=== PATIENT | female | born 1970 | race Caucasian/White ===

== ENCOUNTER → 2019-04-28 | Outpatient (CLI) | payer OTHER ==
[2019-04-28 09:04] LABS: Basophils # (A) 0.1 k/uL (0-0.2); Basophils % (A) 1 %; Eosinophils # (A) 0.3 k/uL (0-0.7); Eosinophils % (A) 3 %; HCT 42.6 % (34.0-46.0); HGB 13.8 gm/dL (11.4-16.0); Lymphocytes # (A) 1.7 k/uL (1.0-4.8); Lymphocytes % (A) 21 %; MCHC 32.5 g/dL (31.0-37.0); MCV 95.3 fL (80.0-100.0); Mean Platelet Volume 8.1; Monocytes # (A) 0.5 k/uL (0-1.0); Monocytes % (A) 6 %; Neutrophils # (A) 5.4 k/uL (1.3-7.7); Neutrophils % (A) 67 %; Platelet Count 265 k/uL (150-450); RBC 4.47 m/uL (3.80-5.40); RDW 14.1 % (11.5-15.5); WBC 8.1 k/uL (3.8-10.6)
[2019-04-28 17:14] LABS: African American GFR (CKD) 68.3 (60.0-200.0); Albumin 4.5 g/dL (3.80-4.90); Albumin/Globulin Ratio 2.5 (1.60-3.17); Anion Gap 5.7 mmol/L (4.00-12.00); BUN/Creat Ratio 18.18 Ratio (12.00-20.00); Calcium 9.5 mg/dL (8.7-10.3); Carbon Dioxide 25.3 mmol/L (21.6-31.8); Globulin 1.8 g/dL (1.6-3.3); LDL Cholesterol,Calculated 116.8 mg/dL (0.0-131.0); Potassium 4.4 mmol/L (3.5-5.5); Total Bilirubin 0.4 mg/dL (0.2-1.2); Total Protein 6.3 g/dL (6.2-8.2); VLDL Calculation 15.2 mg/dL (5.00-40.00)
== END | disposition home or self-care (01) ==
LOC: LABWHC1 08:27
PROVIDERS: ATTEND Family Medicine
DX: E03.9 Hypothyroidism, unspecified (principal); R79.9 Abnormal finding of blood chemistry, unspecified
CPT/HCPCS: 36415; 80053; 80061; 82550; 84443; 85025

== ENCOUNTER → 2019-09-28 | Outpatient (CLI) | payer OTHER ==
--- NOTE | 2019-09-29 14:55 | MM ---
Reason for exam: screening (asymptomatic). Last mammogram was performed 9 years and 1 month ago. History: Patient is postmenopausal. Family history of breast cancer in maternal aunt. Physical Findings: A clinical breast exam by your physician is recommended on an annual basis and results should be correlated with mammographic findings. MG Screening Mammo w CAD Bilateral CC and MLO view(s) were taken. Prior study comparison: November 19, 2017, mammogram. December 08, 2016, mammogram. The breast tissue is heterogeneously dense. This may lower the sensitivity of mammography. New partially obscured nodule upper outer left breast 9.5cm from nipple. ASSESSMENT: Incomplete: need additional imaging evaluation, BI-RAD 0 RECOMMENDATION: Special view mammogram of the left breast. If lesion persists on supplemental views, image directed ultrasound is recommended. [facility] will attempt to contact patient to return for supplemental views and ultrasound if indicated.
== END | disposition home or self-care (01) ==
LOC: RADMAMWWP 16:19
PROVIDERS: ATTEND Family Medicine
DX: Z12.31 Encounter for screening mammogram for malignant neoplasm of breast (principal); Z80.3 Family history of malignant neoplasm of breast
CPT/HCPCS: 77067

== ENCOUNTER → 2019-10-20 | Outpatient (CLI) | payer OTHER ==
--- NOTE | 2019-10-20 14:33 | MM ---
Reason for exam: additional evaluation requested from abnormal screening. Last mammogram was performed 1 month ago. History: Patient is postmenopausal. Family history of breast cancer in maternal aunt. Physical Findings: Nurse did not find any significant physical abnormalities on exam. MG Work Up Mamm w CAD LT Spot compression CC, spot compression MLO, and ML view(s) were taken of the left breast. Prior study comparison: September 28, 2019, bilateral MG screening mammo w CAD. November 19, 2017, mammogram. The breast tissue is heterogeneously dense. This may lower the sensitivity of mammography. The previously seen abnormality resolves on additional views and appears as fibroglandular tissue compatible with summation. These results were verbally communicated with the patient and result sheet given to the patient on 10/20/19. ASSESSMENT: Negative, BI-RAD 1 RECOMMENDATION: Return to routine screening mammogram schedule for both breasts.
== END | disposition home or self-care (01) ==
LOC: RADMAMWWP 13:33
PROVIDERS: ATTEND Family Medicine
DX: R92.8 Other abnormal and inconclusive findings on diagnostic imaging of breast (principal)
CPT/HCPCS: 77065

== ENCOUNTER 2020-02-26 19:31 | Emergency (ER) | payer OTHER ==
[2020-02-26 19:41] VITALS: BP 124/79; PULSE 79; TEMP 99
[2020-02-26] MEDS ORDERED: methylPREDNISolone SOD SUCCI 125 MG/2 ML VIAL IM ONE (20:11)
--- NOTE | 2020-02-26 20:17 | ED ---
General Adult HPI - General Chief complaint: Skin/Abscess/Foreign Body Stated complaint: Bug Bites, allergic reaction Time Seen by Provider: 02/26/20 20:04 Source: patient, RN notes reviewed Mode of arrival: ambulatory Limitations: no limitations - History of Present Illness Initial comments: Patient is a pleasant 50-year-old female presenting to the emergency department with concern for reaction to mosquito bites. Patient received mosquito bites yesterday around this time. Patient complains of discomfort and swelling mostly of the left neck and face however somewhat left arm as well. Patient has approximately 7 or 8 areas. Patient does have problems similar to this previously and needed steroids. Patient talked to her doctor who advised she come to the emergency room for steroid shot and prescription. No dyspnea. No throat swelling. - Related Data Previous Rx's Medication Instructions Recorded predniSONE [Deltasone] 20 mg PO BID #10 tab 02/26/20 Allergies Allergy/AdvReac Type Severity Reaction Status Date / Time No Known Allergies Allergy Verified 02/26/20 19:40 Review of Systems ROS Statement: Those systems with pertinent positive or pertinent negative responses have been documented in the HPI. ROS Other: All systems not noted in ROS Statement are negative. Constitutional: Denies: fever Eyes: Denies: eye pain ENT: Denies: ear pain Respiratory: Denies: cough, dyspnea Cardiovascular: Denies: chest pain Endocrine: Denies: fatigue Gastrointestinal: Denies: abdominal pain Genitourinary: Denies: dysuria Musculoskeletal: Denies: back pain Skin: Reports: as per HPI, rash Neurological: Denies: weakness Past Medical History Past Medical History: Thyroid Disorder History of Any Multi-Drug Resistant Organisms: None Reported Past Surgical History: Cholecystectomy, Hysterectomy, Orthopedic Surgery, Tonsillectomy Past Psychological History: No Psychological Hx Reported Smoking Status: Current every day smoker Past Alcohol Use History: Occasional Past Drug Use History: None Reported General Exam Limitations: no limitations General appearance: alert, in no apparent distress Head exam: Present: normocephalic Eye exam: Present: normal appearance ENT exam: Present: normal oropharynx, other (No signs of angioedema of the lips or tongue or pharynx.) Neck exam: Present: normal inspection Respiratory exam: Present: normal lung sounds bilaterally Cardiovascular Exam: Present: regular rate, normal rhythm Extremities exam: Present: normal inspection Neurological exam: Present: alert Psychiatric exam: Present: normal affect, normal mood Skin exam: Present: other (Patient has several lesions consistent with bug bite with localized inflammation anywhere from a couple of millimeters to a couple of centimeters. No significant erythema or warmth. Areas affected includes mostly left neck however there is one left-sided face. One on the back into in the left arm.) Course Vital Signs 02/26/20 19:36 Temperature 99 F Pulse Rate 79 Respiratory 20 Rate Blood Pressure 124/79 O2 Sat by Pulse 97 Oximetry Disposition Clinical Impression: Insect bite, Reaction to insect bite Disposition: HOME SELF-CARE Condition: Stable Instructions (If sedation given, give patient instructions): Antihistamine (By mouth), Insect Bite or Sting (ED) Additional Instructions: Please follow-up with primary care physician in the next couple days for recheck. Return for any difficulty breathing, swelling of the throat, tongue, or lips, redness, fevers, worsening symptoms, worsening swelling or other concerns. Continue Benadryl Prescription sent to [facility], pharmacy on Prescriptions: predniSONE [Deltasone] 20 mg PO BID #10 tab Is patient prescribed a controlled substance at d/c from ED?: No Referrals: Li Salmeron MD [Primary Care Provider] - 1-2 days Time of Disposition: 20:16
[2020-02-26 20:23] VITALS: RESP 18
== END 2020-02-26 20:22 | disposition home or self-care (01) ==
LOC: EC 19:31
DX: S10.96XA Insect bite of unspecified part of neck, initial encounter (principal); S00.86XA Insect bite (nonvenomous) of other part of head, initial encounter; S40.862A Insect bite (nonvenomous) of left upper arm, initial encounter; F17.200 Nicotine dependence, unspecified, uncomplicated; W57.XXXA Bitten or stung by nonvenomous insect and other nonvenomous arthropods, initial encounter
CPT/HCPCS: 99283; 96372; J2930

== ENCOUNTER → 2020-08-02 | Outpatient (CLI) | payer OTHER ==
--- NOTE | 2020-08-02 11:17 | US ---
EXAMINATION TYPE: US thyroid st tissue head/neck DATE OF EXAM: 08/02/2020 COMPARISON: NONE CLINICAL HISTORY: F45.8 lump in throat. GLAND SIZE: Right Lobe: 3.1 x 1.5 x 1.0 cm Overall Parenchyma: grossly heterogenous Left Lobe: 3.3 x 1.6 x 1.2 cm Overall Parenchyma: grossly heterogeneous Isthmus Thickness: 0.2 cm NODULES RIGHT: # of nodules measured on right: 0 LEFT: # of nodules measured on left: 0 ISTHMUS: # of nodules measured in the isthmus: 0 Bilateral neck scanned, no evidence of lymphadenopathy. Markedly heterogeneous small sized thyroid without discrete nodules. IMPRESSION: As above. No enlarged thyroid or suspicious mass or nodule to account for patient's sympt oms of lump in throat.
== END | disposition home or self-care (01) ==
LOC: RADUSWWP 09:33
PROVIDERS: ATTEND Physician Assistant
DX: F45.8 Other somatoform disorders (principal)
CPT/HCPCS: 76536

== ENCOUNTER 2021-01-03 13:32 | Emergency (ER) | payer OTHER ==
[2021-01-03 13:58] VITALS: RESP 16; TEMP 98.6
[2021-01-03 15:24] LABS: Basophils # (A) 0.1 k/uL (0-0.2); Basophils % (A) 1 %; Eosinophils # (A) 0.1 k/uL (0-0.7); Eosinophils % (A) 1 %; HCT 42.8 % (34.0-46.0); HGB 15.1 gm/dL (11.4-16.0); Lymphocytes % (A) 21 %; MCH 31.7 pg (25.0-35.0); MCHC 35.2 g/dL (31.0-37.0); MCV 90.1 fL (80.0-100.0); Mean Platelet Volume 8.5; Monocytes # (A) 0.5 k/uL (0-1.0); Monocytes % (A) 5 %; Neutrophils # (A) 6.5 k/uL (1.3-7.7); Neutrophils % (A) 70 %; Platelet Count 253 k/uL (150-450); RBC 4.76 m/uL (3.80-5.40); RDW 12.1 % (11.5-15.5); WBC 9.4 k/uL (3.8-10.6)
[2021-01-03 15:35] LABS: Partial Thromboplastin Time 23.6 sec (22.0-30.0); Prothrombin Time 10.3 sec (9.0-12.0)
[2021-01-03 15:36] LABS: ALT 16 U/L (4-34); AST 25 U/L (14-36); African American GFR (CKD) >90 (>60 ml/min/1.73 sqM); Alkaline Phosphatase 101 U/L (38-126); Anion Gap 9 mmol/L; Blood Urea Nitrogen 16 mg/dL (7-17); Calcium 9.9 mg/dL (8.4-10.2); Carbon Dioxide 25 mmol/L (22-30); Chloride 105 mmol/L (98-107); Glucose 93 mg/dL (74-99); Magnesium 2.1 mg/dL (1.6-2.3); Non-African American GFR(CKD) 80 (>60 ml/min/1.73 sqM); Potassium 4.4 mmol/L (3.5-5.1); Sodium 139 mmol/L (137-145); Total Bilirubin 0.4 mg/dL (0.2-1.3); Total Protein 7.9 g/dL (6.3-8.2)
--- NOTE | 2021-01-03 15:42 | XR ---
EXAMINATION TYPE: XR chest 2V DATE OF EXAM: 01/03/2021 COMPARISON: None HISTORY: Chest pain TECHNIQUE: Frontal and lateral views of the chest are obtained. FINDINGS: There is no focal air space opacity, pleural effusion, or pneumothorax seen. The cardiac silhouette size is within normal limits. Surgical clips are present in the upper abdomen. The osseou s structures are intact. IMPRESSION: No acute cardiopulmonary process.
[2021-01-03 19:18] VITALS: BP 122/92; PULSE 65
--- NOTE | 2021-01-03 19:41 | ED ---
General Adult HPI - General Chief complaint: Chest Pain Stated complaint: Chest Pain Time Seen by Provider: 01/03/21 18:43 Source: patient Mode of arrival: wheelchair Limitations: no limitations - History of Present Illness Initial comments: Patient is a 50-year-old female that presents to emergency department complaining of chest pain. She notes that she does have a history of severe anxiety and stress at home. She wanted to come emergency room to get evaluated she does have family history of reactive rest and cardiac issues. She was seen while sitting in bed in no apparent distress or pain. She said that the chest pain and gone away. She noted that over the last several days the pain seemed to be constant. She denied any shortness of breath headache nausea vomiting diarrhea constipation fever fatigue chills lightheadedness dizziness weakness numbness tingling. - Related Data Home Medications Medication Instructions Recorded Confirmed Azelastine HCl [Astepro] 1 spr EA NOSTRIL BID PRN 01/03/21 01/03/21 Cetirizine HCl 10 mg PO HS 01/03/21 01/03/21 EPINEPHrine (Auto Inject) [Epipen] 0.3 mg IM ONCE PRN 01/03/21 01/03/21 Fluticasone Nasal [place] [Flonase 2 spr EA NOSTRIL BID PRN 01/03/21 01/03/21 Nasal Marydel] Levothyroxine Sodium 150 mcg PO DAILY 01/03/21 01/03/21 Montelukast [Singulair] 10 mg PO HS 01/03/21 01/03/21 Allergies Allergy/AdvReac Type Severity Reaction Status Date / Time bee venom protein (honey bee) Allergy Anaphylaxis Verified 01/03/21 19:20 insect venom Allergy Anaphylaxis Verified 01/03/21 19:20 Penicillins Allergy Rash/Hives Verified 01/03/21 19:19 Review of Systems ROS Statement: Those systems with pertinent positive or pertinent negative responses have been documented in the HPI. ROS Other: All systems not noted in ROS Statement are negative. Past Medical History Past Medical History: Thyroid Disorder History of Any Multi-Drug Resistant Organisms: None Reported Past Surgical History: Cholecystectomy, Hysterectomy, Orthopedic Surgery, Tonsillectomy Past Psychological History: No Psychological Hx Reported Smoking Status: Current every day smoker Past Alcohol Use History: Occasional Past Drug Use History: None Reported General Exam Limitations: no limitations General appearance: alert, in no apparent distress Head exam: Present: atraumatic, normocephalic, normal inspection Eye exam: Present: normal appearance, PERRL, EOMI. Absent: scleral icterus, conjunctival injection, periorbital swelling ENT exam: Present: normal exam, mucous membranes moist Neck exam: Present: normal inspection. Absent: tenderness, meningismus, lymphadenopathy Respiratory exam: Present: normal lung sounds bilaterally. Absent: respiratory distress, wheezes, rales, rhonchi, stridor Cardiovascular Exam: Present: regular rate, normal rhythm, normal heart sounds. Absent: systolic murmur, diastolic murmur, rubs, gallop, clicks GI/Abdominal exam: Present: soft, normal bowel sounds. Absent: distended, tenderness, guarding, rebound, rigid Extremities exam: Present: normal inspection, full ROM, normal capillary refill. Absent: tenderness, pedal edema, joint swelling, calf tenderness Neurological exam: Present: alert, oriented X3, CN II-XII intact Psychiatric exam: Present: normal affect, normal mood Skin exam: Present: warm, dry, intact, normal color. Absent: rash Course Vital Signs 01/03/21 13:55 Temperature 98.6 F Pulse Rate 76 Respiratory 16 Rate Blood Pressure 133/79 O2 Sat by Pulse 100 Oximetry EKG Findings - EKG Comments: EKG Findings:: Ventricular rate 62 bpm, PA interval 160 ms, QRS duration 78 ms, QT/QTC 396/405 no signs, PRT axes 69/71/67. Normal sinus rhythm, possible left atrial enlargement, borderline ECG. Medical Decision Making - Medical Decision Making 50-year-old female complaining of chest pain with a severe history of anxiety. Labs, EKG, chest x-ray ordered. Labs unremarkable, chest x-ray no acute cardiopulmonary process. Case discussed with Dr. Almanzar, patient can discharge home. - Lab Data Result diagrams: 01/03/21 14:52 01/03/21 14:52 Lab Results 01/03/21 01/03/21 01/03/21 Range/Units 14:52 14:52 14:52 WBC 9.4 (3.8-10.6) k/uL RBC 4.76 (3.80-5.40) m/uL Hgb 15.1 (11.4-16.0) gm/dL Hct 42.8 (34.0-46.0) % MCV 90.1 (80.0-100.0) fL MCH 31.7 (25.0-35.0) pg MCHC 35.2 (31.0-37.0) g/dL RDW 12.1 (11.5-15.5) % Plt Count 253 (150-450) k/uL MPV 8.5 Neutrophils % 70 % Lymphocytes % 21 % Monocytes % 5 % Eosinophils % 1 % Basophils % 1 % Neutrophils # 6.5 (1.3-7.7) k/uL Lymphocytes # 2.0 (1.0-4.8) k/uL Monocytes # 0.5 (0-1.0) k/uL Eosinophils # 0.1 (0-0.7) k/uL Basophils # 0.1 (0-0.2) k/uL PT 10.3 (9.0-12.0) sec INR 1.0 (<1.2) APTT 23.6 (22.0-30.0) sec Sodium 139 (137-145) mmol/L Potassium 4.4 (3.5-5.1) mmol/L Chloride 105 (98-107) mmol/L Carbon Dioxide 25 (22-30) mmol/L Anion Gap 9 mmol/L BUN 16 (7-17) mg/dL Creatinine 0.85 (0.52-1.04) mg/dL Est GFR (CKD-EPI)AfAm >90 (>60 ml/min/1.73 sqM) Est GFR (CKD-EPI)NonAf 80 (>60 ml/min/1.73 sqM) Glucose 93 (74-99) mg/dL Calcium 9.9 (8.4-10.2) mg/dL Magnesium 2.1 (1.6-2.3) mg/dL Total Bilirubin 0.4 (0.2-1.3) mg/dL AST 25 (14-36) U/L ALT 16 (4-34) U/L Alkaline Phosphatase 101 (38-126) U/L Troponin I (0.000-0.034) ng/mL NT-Pro-B Natriuret Pep pg/mL Total Protein 7.9 (6.3-8.2) g/dL Albumin 5.0 (3.5-5.0) g/dL 01/03/21 01/03/21 Range/Units 14:52 14:52 WBC (3.8-10.6) k/uL RBC (3.80-5.40) m/uL Hgb (11.4-16.0) gm/dL Hct (34.0-46.0) % MCV (80.0-100.0) fL MCH (25.0-35.0) pg MCHC (31.0-37.0) g/dL RDW (11.5-15.5) % Plt Count (150-450) k/uL MPV Neutrophils % % Lymphocytes % % Monocytes % % Eosinophils % % Basophils % % Neutrophils # (1.3-7.7) k/uL Lymphocytes # (1.0-4.8) k/uL Monocytes # (0-1.0) k/uL Eosinophils # (0-0.7) k/uL Basophils # (0-0.2) k/uL PT (9.0-12.0) sec INR (<1.2) APTT (22.0-30.0) sec Sodium (137-145) mmol/L Potassium (3.5-5.1) mmol/L Chloride (98-107) mmol/L Carbon Dioxide (22-30) mmol/L Anion Gap mmol/L BUN (7-17) mg/dL Creatinine (0.52-1.04) mg/dL Est GFR (CKD-EPI)AfAm (>60 ml/min/1.73 sqM) Est GFR (CKD-EPI)NonAf (>60 ml/min/1.73 sqM) Glucose (74-99) mg/dL Calcium (8.4-10.2) mg/dL Magnesium (1.6-2.3) mg/dL Total Bilirubin (0.2-1.3) mg/dL AST (14-36) U/L ALT (4-34) U/L Alkaline Phosphatase (38-126) U/L Troponin I <0.012 (0.000-0.034) ng/mL NT-Pro-B Natriuret Pep 33 pg/mL Total Protein (6.3-8.2) g/dL Albumin (3.5-5.0) g/dL - EKG Data -: EKG Interpreted by Me EKG Comments: Ventricular rate 62 bpm, PA interval 160 ms, QRS duration 78 ms, QT/QTC 396/405 no signs, PRT axes 69/71/67. Normal sinus rhythm, possible left atrial enlargement, borderline ECG. Disposition Clinical Impression: Anxiety Disposition: HOME SELF-CARE Condition: Stable Instructions (If sedation given, give patient instructions): Chest Pain (ED) Additional Instructions: Please return to the Emergency Department if symptoms worsen or any other concerns. Follow-up with primary care, get prescription for stress test and cardiology referral. Continue to take at home prescriptions as prescribed. Is patient prescribed a controlled substance at d/c from ED?: No Referrals: Li Salmeron MD [Primary Care Provider] - 1-2 days Time of Disposition: 19:43
== END 2021-01-03 20:04 | disposition home or self-care (01) ==
LOC: EC 13:32
DX: F41.9 Anxiety disorder, unspecified (principal); R07.9 Chest pain, unspecified; F17.200 Nicotine dependence, unspecified, uncomplicated; Z88.0 Allergy status to penicillin
CPT/HCPCS: 36415; 71046; 80053; 83735; 83880; 84484; 85025; 85610; 85730; 93005; 99285

== ENCOUNTER 2021-04-18 17:47 | Emergency (ER) | payer OTHER ==
[2021-04-18 18:05] VITALS: BP 155/89; TEMP 98
[2021-04-18] MEDS ORDERED: methylPREDNISolone SOD SUCCI 125 MG/2 ML VIAL IM ONE (19:03)
--- NOTE | 2021-04-18 19:10 | ED ---
General Adult HPI - General Chief complaint: Allergic Reaction Stated complaint: allergic reaction Source: patient, RN notes reviewed Mode of arrival: ambulatory Limitations: no limitations - History of Present Illness Initial comments: 51-year-old white female presents to the emergency room, alert and oriented 4, with complaints of being bitten by a mosquito lasting around 10 PM in her garage. She states that she heard a buzzing in her ear and she is very ALLERGIC to mosquitoes. She irrigated her ear out and couldn't feel the swelling in the heat and side of her face so she used her EpiPen and Benadryl. Today she states that it still feels swollen and hot to touch. In the past she has received a prescription for steroids and it resolves her symptoms. She denies any nausea vomiting, any tongue swelling or difficulty in breathing. -: days(s) (1) Location: face (Left ear) Radiation: non-radiation Severity scale (1-10): 7 Quality: other Consistency: constant Improves with: none Worsens with: none Associated Symptoms: other (Itching) Treatments Prior to Arrival: other (Benadryl and epinephrine) - Related Data Home Medications Medication Instructions Recorded Confirmed Azelastine HCl [Astepro] 1 spr EA NOSTRIL BID PRN 01/03/21 01/03/21 Cetirizine HCl 10 mg PO HS 01/03/21 01/03/21 EPINEPHrine (Auto Inject) [Epipen] 0.3 mg IM ONCE PRN 01/03/21 01/03/21 Fluticasone Nasal [place]ird[place] [Flonase 2 spr EA NOSTRIL BID PRN 01/03/21 01/03/21 Nasal [place]] Levothyroxine Sodium 150 mcg PO DAILY 01/03/21 01/03/21 Montelukast [Singulair] 10 mg PO HS 01/03/21 01/03/21 Previous Rx's Medication Instructions Recorded EPINEPHrine (Auto Inject) [Epipen] 0.3 mg IM ONCE PRN #1 pen 04/18/21 predniSONE 50 mg PO DAILY #5 tab 04/18/21 Allergies Allergy/AdvReac Type Severity Reaction Status Date / Time Beef Containing Products Allergy Rash/Hives Verified 04/18/21 18:06 [Beef] insect venom Allergy Anaphylaxis Verified 04/18/21 18:05 Milk Containing Products Allergy Rash/Hives Verified 04/18/21 18:06 [Dairy] Penicillins Allergy Rash/Hives Verified 04/18/21 18:05 Review of Systems ROS Statement: Those systems with pertinent positive or pertinent negative responses have been documented in the HPI. ROS Other: All systems not noted in ROS Statement are negative. Past Medical History Past Medical History: Thyroid Disorder History of Any Multi-Drug Resistant Organisms: None Reported Past Surgical History: Cholecystectomy, Hysterectomy, Orthopedic Surgery, Tonsillectomy Past Psychological History: No Psychological Hx Reported Smoking Status: Current every day smoker Past Alcohol Use History: Occasional Past Drug Use History: None Reported General Exam Limitations: no limitations General appearance: alert, in no apparent distress Head exam: Present: atraumatic, normocephalic, normal inspection Eye exam: Present: normal appearance, PERRL, EOMI. Absent: scleral icterus, conjunctival injection, nystagmus, periorbital swelling Pupils: Present: normal accommodation ENT exam: Present: normal exam, normal oropharynx, mucous membranes moist, TM's normal bilaterally, other (Left ear is warm no swelling noted; TM is clear) Neck exam: Present: normal inspection. Absent: tenderness, meningismus, lymphadenopathy Respiratory exam: Present: normal lung sounds bilaterally. Absent: respiratory distress, wheezes, rales, rhonchi, stridor, chest wall tenderness, accessory muscle use, decreased breath sounds, prolonged expiratory Cardiovascular Exam: Present: regular rate, normal rhythm, normal heart sounds. Absent: systolic murmur, diastolic murmur, rubs, gallop, clicks GI/Abdominal exam: Present: soft, normal bowel sounds. Absent: distended, tenderness, guarding, rebound, rigid Extremities exam: Present: normal inspection, full ROM, normal capillary refill. Absent: tenderness, pedal edema, joint swelling, calf tenderness Back exam: Present: normal inspection, full ROM. Absent: tenderness, CVA tenderness (R), CVA tenderness (L), muscle spasm, paraspinal tenderness, vertebral tenderness Neurological exam: Present: alert, oriented X3, CN II-XII intact Psychiatric exam: Present: normal affect, normal mood Skin exam: Present: warm, dry, intact, normal color. Absent: rash, cyanosis, diaphoretic, erythema, petechiae, pallor, mottled Course Vital Signs 04/18/21 18:00 Temperature 98.0 F Pulse Rate 65 Respiratory 16 Rate Blood Pressure 155/89 O2 Sat by Pulse 98 Oximetry Medical Decision Making - Medical Decision Making Patient is well-appearing with no respiratory distress, lung sounds are clear, no nausea vomiting, or rashes. She denies any tongue swelling or difficulty in breathing. She states in the past after being bit by mosquitoes she uses her EpiPen and gets steroids for 5 days. Patient will be prescribed prednisone for 5 days refill on her EpiPen directed to continue using Benadryl needed for itching. Case discussed with Dr. Soliz Disposition Clinical Impression: Insect sting allergy, current reaction Disposition: HOME SELF-CARE Condition: Good Instructions (If sedation given, give patient instructions): Insect Bite or Sting (ED) Additional Instructions: Take the prednisone as prescribed, Benadryl as needed for itching, EpiPen as needed for ALLERGIC reaction or difficulty breathing. Please return to the emergency room with worsening symptoms including nausea, vomiting, difficulty breathing or tongue swelling. Prescriptions: EPINEPHrine (Auto Inject) [Epipen] 0.3 mg IM ONCE PRN #1 pen PRN Reason: Anaphylaxis predniSONE 50 mg PO DAILY #5 tab Is patient prescribed a controlled substance at d/c from ED?: No Referrals: Li Salmeron MD [Primary Care Provider] - 1-2 days Time of Disposition: 19:10
[2021-04-18 19:28] VITALS: PULSE 70; RESP 18
== END 2021-04-18 19:28 | disposition home or self-care (01) ==
LOC: EC 17:47
DX: T63.481A Toxic effect of venom of other arthropod, accidental (unintentional), initial encounter (principal); F17.200 Nicotine dependence, unspecified, uncomplicated; Z88.0 Allergy status to penicillin
CPT/HCPCS: 99283; 96372; J2930

== ENCOUNTER 2021-08-18 19:35 | Emergency (ER) | payer OTHER ==
[2021-08-18 20:21] VITALS: BP 122/82; PULSE 74; RESP 18; TEMP 98.4
--- NOTE | 2021-08-18 20:38 | XR ---
EXAMINATION TYPE: XR hand complete RT DATE OF EXAM: 08/18/2021 COMPARISON: NONE HISTORY: Pain TECHNIQUE: 3 views FINDINGS: Carpal bones are intact. Metacarpals are intact. I see no fracture nor dislocation. There a re no erosions. IMPRESSION: Negative right hand exam. No fracture.
[2021-08-18] MEDS ORDERED: ACET/COD 300 MG/30 MG STARTER PACK 6 TAB BTL PO STA (22:28)
--- NOTE | 2021-08-18 22:28 | ED ---
Upper Extremity HPI - General Chief Complaint: Extremity Injury, Upper Stated Complaint: R hand Injury Time Seen by Provider: 08/18/21 21:36 Source: patient, RN notes reviewed Mode of arrival: ambulatory Limitations: no limitations - History of Present Illness Initial Comments: Patient is a 51-year-old female presenting to emergency Department with comp laints of an injury to her right hand. Patient states she accidentally smashed her right hand onto the wall while she was holding onto her suitcase. This happened about 3 days ago, she continued to have swelling in her hand and was afraid she may have fractured it. She also states that she has a ring on her right middle finger which is now stuck. She is requesting this to be cut off. She has no further complaints. - Related Data Home Medications Medication Instructions Recorded Confirmed Azelastine HCl [Astepro] 1 spr EA NOSTRIL BID PRN 01/03/21 01/03/21 Cetirizine HCl 10 mg PO HS 01/03/21 01/03/21 EPINEPHrine (Auto Inject) [Epipen] 0.3 mg IM ONCE PRN 01/03/21 01/03/21 Fluticasone Nasal [place] [Flonase 2 spr EA NOSTRIL BID PRN 01/03/21 01/03/21 Nasal [place]] Levothyroxine Sodium 150 mcg PO DAILY 01/03/21 01/03/21 Montelukast [Singulair] 10 mg PO HS 01/03/21 01/03/21 Previous Rx's Medication Instructions Recorded EPINEPHrine (Auto Inject) [Epipen] 0.3 mg IM ONCE PRN #1 pen 04/18/21 predniSONE 50 mg PO DAILY #5 tab 04/18/21 Allergies Allergy/AdvReac Type Severity Reaction Status Date / Time Beef Containing Products Allergy Rash/Hives Verified 08/18/21 20:21 [Beef] insect venom Allergy Anaphylaxis Verified 08/18/21 20:21 Milk Containing Products Allergy Rash/Hives Verified 08/18/21 20:21 [Dairy] Penicillins Allergy Rash/Hives Verified 08/18/21 20:21 Review of Systems ROS Statement: Those systems with pertinent positive or pertinent negative responses have been documented in the HPI. ROS Other: All systems not noted in ROS Statement are negative. Past Medical History Past Medical History: Thyroid Disorder History of Any Multi-Drug Resistant Organisms: None Reported Past Surgical History: Cholecystectomy, Hysterectomy, Orthopedic Surgery, Tonsillectomy Past Psychological History: No Psychological Hx Reported Smoking Status: Current every day smoker Past Alcohol Use History: Occasional Past Drug Use History: None Reported General Exam - General Exam Comments Initial Comments: GENERAL: Patient is well-developed and well-nourished. Patient is nontoxic and in no acute distress. HEAD: Atraumatic, normocephalic. EYES: Pupils equal round and reactive to light, extraocular movements intact, sclera anicteric, conjunctiva are normal. Eyelids were unremarkable. LUNGS: Unlabored respirations. Breath sounds clear to auscultation bilaterally and equal. No wheezes rales or rhonchi. HEART: Regular rate and rhythm without murmurs, rubs or gallops. MUSCULOSKELETAL: Patient has mild swelling noted to the dorsal aspect of the right hand into the fingers. She is neurovascularly intact, she has full range of motion of her right hand and fingers. She does have a ring stuck on her right middle finger. No clubbing or cyanosis. NEUROLOGICAL: Patient is alert and oriented x 3. SKIN: Warm, Dry, normal turgor, no rashes or lesions noted. Limitations: no limitations Course Vital Signs 08/18/21 20:19 Temperature 98.4 F Pulse Rate 74 Respiratory 18 Rate Blood Pressure 122/82 O2 Sat by Pulse 99 Oximetry Procedures - Procedures Initial comment: Patient had a ring stuck on her right middle finger secondary to a contusion to her right hand. She is requesting this to be cut off. I was able to use a pair of raptors to cut the ring and removal without complications. Medical Decision Making - Medical Decision Making Patient is a 51-year-old female here with an injury to her right hand. She also had a ring stuck on her right middle finger. X-rays reveal no acute fracture dislocations of the right hand. I was able to remove the ring without incident. Patient stable for discharge. She can follow up with her primary care. Disposition Clinical Impression: Contusion of right hand, Swelling of right middle finger Narrative: ring stuck on right middle finger Disposition: HOME SELF-CARE Condition: Stable Instructions (If sedation given, give patient instructions): Contusion in Adults (ED) Additional Instructions: Please return to the Emergency Department if symptoms worsen or any other con cerns. Continue to ice, elevate the hand. Follow-up with your primary care. Is patient prescribed a controlled substance at d/c from ED?: No Referrals: Li Salmeron MD [Primary Care Provider] - 1-2 days Time of Disposition: 22:28
== END 2021-08-18 22:43 | disposition home or self-care (01) ==
LOC: EC 19:35
DX: S60.221A Contusion of right hand, initial encounter (principal); F17.200 Nicotine dependence, unspecified, uncomplicated; Z79.890 Hormone replacement therapy; Z79.52 Long term (current) use of systemic steroids; Z79.899 Other long term (current) drug therapy; W22.01XA Walked into wall, initial encounter
CPT/HCPCS: 99283

== ENCOUNTER → 2021-09-12 | Outpatient (CLI) | payer OTHER ==
--- NOTE | 2021-09-16 12:03 | MM ---
Reason for exam: screening (asymptomatic). Last mammogram was performed 1 year and 11 months ago. History: Patient is postmenopausal. Family history of breast cancer in maternal aunt. Physical Findings: A clinical breast exam by your physician is recommended on an annual basis and results should be correlated with mammographic findings. MG Screening Mammo w CAD Bilateral CC and MLO view(s) were taken. Prior study comparison: October 20, 2019, left breast MG work up mamm w CAD LT. September 28, 2019, bilateral MG screening mammo w CAD. The breast tissue is heterogeneously dense. This may lower the sensitivity of mammography. No significant changes when compared with prior studies. ASSESSMENT: Negative, BI-RAD 1 RECOMMENDATION: Routine screening mammogram of both breasts in 1 year.
== END | disposition home or self-care (01) ==
LOC: RADMAMWWP 14:07
PROVIDERS: ATTEND Family Medicine
DX: Z12.31 Encounter for screening mammogram for malignant neoplasm of breast (principal); Z78.0 Asymptomatic menopausal state; Z80.3 Family history of malignant neoplasm of breast
CPT/HCPCS: 77067

== ENCOUNTER 2023-04-12 11:39 | Emergency (ER) | payer OTHER ==
--- NOTE | 2023-04-12 13:01 | XR ---
EXAMINATION TYPE: XR chest 2V DATE OF EXAM: 04/12/2023 COMPARISON: 05/26/22 HISTORY: Shortness of breath TECHNIQUE: Frontal and lateral views of the chest are obtained. FINDINGS: Scattered senescent parenchymal changes noted. Hyperinflation compatible with COPD. No evidence for infiltrate. No evidence for atelectasis. Heart size is stable. Mediastinal structures are stable and grossly unremarkable. No evidence for hilar prominence. Degenerative changes dorsal spine. IMPRESSION: 1. No evidence for acute pulmonary disease.
--- NOTE | 2023-04-12 13:06 | XR ---
EXAMINATION TYPE: XR forearm RT DATE OF EXAM: 04/12/2023 COMPARISON: NONE HISTORY: Pain Two views of the forearm demonstrate that the osseous structures appear to be intact and the joint sp aces appear to be preserved. There is no acute fracture or dislocation. There is an olecranon spur. IMPRESSION: 1. No acute fracture or dislocation 2. Olecranon spur.
[2023-04-12] MEDS ORDERED: IPRATROPIUM-ALBUTEROL 3 ML NEB INHALATION STA (13:09)
--- NOTE | 2023-04-12 13:26 | ED ---
URI HPI - General Chief Complaint: Upper Respiratory Infection Stated Complaint: cough Time Seen by Provider: 04/12/23 11:55 Source: patient, RN notes reviewed Mode of arrival: ambulatory Limitations: no limitations, physical limitation - History of Present Illness Initial Comments: 53-year-old female presents emergency Department with chief complaint of cough congestion. Patient states she's noticed some wheezing and nonproductive cough last 2 days. Patient states she then issues while with her ALLERGIES. She denies any fevers or chills denies any headache or dizziness does admit to mild nasal congestion patient also has a right forearm injury in which she states she slipped 01 week ago. Patient states her swelling which is now improved. - Related Data Home Medications Medication Instructions Recorded Confirmed Azelastine HCl [Astepro] 1 spr EA NOSTRIL BID PRN 01/03/21 01/03/21 Cetirizine HCl 10 mg PO HS 01/03/21 01/03/21 EPINEPHrine (Auto Inject) [Epipen] 0.3 mg IM ONCE PRN 01/03/21 01/03/21 Fluticasone Nasal [place] [Flonase 2 spr EA NOSTRIL BID PRN 01/03/21 01/03/21 Nasal [place]] Levothyroxine Sodium 150 mcg PO DAILY 01/03/21 01/03/21 Montelukast [Singulair] 10 mg PO HS 01/03/21 01/03/21 Previous Rx's Medication Instructions Recorded EPINEPHrine (Auto Inject) [Epipen] 0.3 mg IM ONCE PRN #1 pen 04/18/21 predniSONE 50 mg PO DAILY #5 tab 04/18/21 predniSONE 50 mg PO DAILY #5 tab 04/12/23 Allergies Allergy/AdvReac Type Severity Reaction Status Date / Time Beef Containing Products Allergy Rash/Hives Verified 04/12/23 11:42 [Beef] insect venom Allergy Anaphylaxis Verified 04/12/23 11:42 Milk Containing Products Allergy Rash/Hives Verified 04/12/23 11:42 [Dairy] Penicillins Allergy Rash/Hives Verified 04/12/23 11:42 Review of Systems ROS Statement: Those systems with pertinent positive or pertinent negative responses have been documented in the HPI. ROS Other: All systems not noted in ROS Statement are negative. Past Medical History Past Medical History: Hyperlipidemia, Thyroid Disorder History of Any Multi-Drug Resistant Organisms: None Reported Past Surgical History: Cholecystectomy, Hysterectomy, Orthopedic Surgery, Tonsillectomy Past Psychological History: No Psychological Hx Reported Smoking Status: Current every day smoker Past Alcohol Use History: Occasional Past Drug Use History: Marijuana General Exam Limitations: no limitations, physical limitation General appearance: alert, in no apparent distress Head exam: Present: atraumatic, normocephalic, normal inspection Eye exam: Present: normal appearance, PERRL, EOMI. Absent: scleral icterus, conjunctival injection, periorbital swelling ENT exam: Present: normal exam, normal oropharynx, mucous membranes moist, TM's normal bilaterally Neck exam: Present: normal inspection, full ROM. Absent: tenderness, meningismus, lymphadenopathy Respiratory exam: Present: wheezes, chest wall tenderness. Absent: normal lung sounds bilaterally, respiratory distress, rales, rhonchi, stridor Cardiovascular Exam: Present: regular rate, normal rhythm, normal heart sounds. Absent: systolic murmur, diastolic murmur, rubs, gallop, clicks Extremities exam: Present: other (Right forearm there is mild tenderness, swelling, no) Neurological exam: Present: alert Skin exam: Present: warm, dry, intact, normal color. Absent: rash Course Vital Signs 04/12/23 04/12/23 04/12/23 11:40 13:26 13:47 Temperature 97.9 F Pulse Rate 73 74 74 Respiratory 20 Rate Blood Pressure 121/72 O2 Sat by Pulse 99 Oximetry Medical Decision Making - Medical Decision Making Was pt. sent in by a medical professional or institution (, PA, [employer] CONSULTANT, urgent care, hospital, or [facility]...) When possible be specific @ -No Did you speak to anyone other than the patient for history (EMS, parent, family, police, friend...)? What history was obtained from this source @ -No Did you review nursing and triage notes (agree or disagree)? Why? @ -I reviewed and agree with nursing and triage notes Were old charts reviewed (outside hosp., previous admission, EMS record, old EKG, old radiological studies, urgent care reports/EKG's, [facility] records)? Report findings @ -No old charts were reviewed Differential Diagnosis (chest pain, altered mental status, abdominal pain women, abdominal pain men, vaginal bleeding, weakness, fever, dyspnea, syncope, headache, dizziness, GI bleed, back pain, seizure, CVA, palpatations, mental health, musculoskeletal)? @ -URI, pneumonia, acute bronchitis, EKG interpreted by me (3pts min.). @ -None X-rays interpreted by me (1pt min.). @ -Chest x-ray shows no acute cardio pulmonary process CT interpreted by me (1pt min.). @ -None done U/S interpreted by me (1pt. min.). @ -None done What testing was considered but not performed or refused? (CT, X-rays, U/S, labs)? Why? @ -None What meds were considered but not given or refused? Why? @ -None Did you discuss the management of the patient with other professionals (professionals i.e. DrNathan, PA, [employer] CONSULTANT, lab, RT, psych nurse, social services director, print developer automatic, teacher, traffic division commanding officer, case preparer and liner)? Give summary @ -No Was smoking cessation discussed for >3mins.? @ -No Was critical care preformed (if so, how long)? @ -No Were there social determinants of health that impacted care today? How? (Homelessness, low income, unemployed, alcoholism, drug addiction, transportation, low edu. Level, literacy, decrease access to med. care, correction, rehab)? @ -No Was there de-escalation of care discussed even if they declined (Discuss DNR or withdrawal of care, Hospice)? DNR status @ -No What co-morbidities impacted this encounter? (DM, HTN, Smoking, COPD, CAD, Cancer, CVA, ARF, Chemo, Hep., AIDS, mental health diagnosis, sleep apnea, morbid obesity)? @ -None Was patient admitted / discharged? Hospital course, mention meds given and route, prescriptions, significant lab abnormalities, going to OR and other pertinent info. @ -Discharge patient's chest x-ray shows no acute cardio process patient's improved after DuoNeb treatment be discharged with prednisone for acute bronchitis. Patient x-ray of forearm shows no acute fracture patient is a right forearm contusion. Undiagnosed new problem with uncertain prognosis? @ -No Drug Therapy requiring intensive monitoring for toxicity (Heparin, Nitro, Insulin, Cardizem)? @ -No Were any procedures done? @ -No Diagnosis/symptom? @ -Acute bronchitis, right forearm contusion Acute, or Chronic, or Acute on Chronic? @ -Acute Uncomplicated (without systemic symptoms) or Complicated (systemic symptoms)? @ -Uncomplicated Side effects of treatment? @ -No Exacerbation, Progression, or Severe Exacerbation? @ -No Poses a threat to life or bodily function? How? (Chest pain, [place], [place], pneumonia, PE, COPD, DKA, ARF, appy, cholecystitis, CVA, Diverticulitis, Homicidal, Suicidal, threat to staff... and all critical care pts) @ -No Disposition Clinical Impression: Acute bronchitis, Contusion of right forearm Disposition: HOME SELF-CARE Condition: Stable Instructions (If sedation given, give patient instructions): Upper Respiratory Infection (ED) Additional Instructions: Please return to the Emergency Department if symptoms worsen or any other concerns. Prescriptions: predniSONE 50 mg PO DAILY #5 tab Is patient prescribed a controlled substance at d/c from ED?: No Referrals: None,Stated [Primary Care Provider] - 1-2 days Time of Disposition: 13:55
[2023-04-12 14:30] VITALS: BP 114/72; PULSE 72; RESP 18; TEMP 98.2
== END 2023-04-12 15:03 | disposition home or self-care (01) ==
LOC: EC 11:39
DX: S50.11XA Contusion of right forearm, initial encounter (principal); J40 Bronchitis, not specified as acute or chronic; E78.5 Hyperlipidemia, unspecified; E07.9 Disorder of thyroid, unspecified; F12.90 Cannabis use, unspecified, uncomplicated; F17.200 Nicotine dependence, unspecified, uncomplicated; Z79.890 Hormone replacement therapy; Z79.899 Other long term (current) drug therapy; Z91.030 Bee allergy status; Z91.011 Allergy to milk products; Z91.018 Allergy to other foods; Z88.0 Allergy status to penicillin; X58.XXXA Exposure to other specified factors, initial encounter
CPT/HCPCS: 71046; 94640; 99283

== ENCOUNTER → 2023-05-21 | Outpatient (CLI) | payer OTHER ==
--- NOTE | 2023-05-24 20:23 | MM ---
Reason for Exam: Screening (asymptomatic). Last mammogram was performed 1 year(s) and 8 month(s) ago. Patient History: Menarche at age 10. First Full-Term at age 23. Hysterectomy at age 44. Postmenopausal. Maternal aunt had breast cancer. Risk Values: Yolanda 5 year model risk: 1.1%. NCI Lifetime model risk: 8.4%. Prior Study Comparison: 09/28/2019 Bilateral Screening Mammogram, [facility]. 10/20/2019 Left Diagnostic Mammogram, [facility]. 09/12/2021 Bilateral Screening Mammogram, [facility]. Tissue Density: There are scattered fibroglandular densities. Findings: Analyzed By CAD. There is some fluctuating nodularity central right cc view. Asymmetric density upper outer quadrant left breast middle to posterior depth is unchanged as well. There is no suspicious group of microcalcifications or new suspicious mass in either breast. Overall Assessment: Benign, BI-RAD 2 Management: Screening Mammogram of both breasts in 1 year. . Patient should continue monthly self-breast exams. A clinical breast exam by your physician is recommended on an annual basis. This exam should not preclude additional follow-up of suspicious palpable abnormalities. Note on Yolanda scores and lifetime risk: 1. A Yolanda score greater than 3% is considered moderate risk. If this is the case, consider specialist referral to assess eligibility for a risk reducing agent. 2. If overall lifetime risk for the development of breast cancer is 20% or higher, the patient may qualify for future screening with alternating mammogram and breast MRI. Electronically signed and approved by: Renetta Samano M.D. Radiologist
== END | disposition home or self-care (01) ==
LOC: RADMAMWWP 10:47
PROVIDERS: ATTEND Family Medicine
DX: Z12.31 Encounter for screening mammogram for malignant neoplasm of breast (principal); Z78.0 Asymptomatic menopausal state; Z80.3 Family history of malignant neoplasm of breast
CPT/HCPCS: 77067

== ENCOUNTER → 2023-05-21 | Outpatient (CLI) | payer OTHER ==
--- NOTE | 2023-05-21 18:46 | CTL ---
EXAMINATION TYPE: CT Low Dose Lung DATE OF EXAM ORDERED: 05/21/2023 HISTORY: Tobacco use. Lung cancer screening CT DLP: [address] CTDI: 2.23 mGy Automated exposure control for dose reduction was used. SCREENING VISIT: Initial COMPARISON: None TECHNIQUE: Low dose computed tomography scan was performed through the chest at 1 mm thick sections a nd reconstructed images in the coronal plane at [address] DIAGNOSTIC QUALITY: Limited, but interpretable FINDINGS: LUNG NODULES: None. LUNGS: COPD: Severity: None Fibrosis: Severity: None Lymph nodes: None Other findings: None RIGHT PLEURAL SPACE: Effusion: None Calcification: None Thickening: None Pneumothorax: None LEFT PLEURAL SPACE: Effusion: None Calcification: None Thickening: None Pneumothorax: None HEART: Heart Size: Normal Coronary calcification: None Pericardial effusion: None OTHER FINDINGS: Upper abdomen: Normal Bony thorax: Normal Supraclavicular region: Normal Other: Ascending thoracic aorta at the level the main pulmonary artery measures 3.8 cm. The main pul monary artery at the bifurcation measures 2.8 cm. IMPRESSION: No suspicious findings to suggest primary or metastatic neoplasm. FOLLOW UP CT CHEST RECOMMENDATION: Low-dose CT chest [address] LUNG RAD: Lung-Rad 1 Negative
== END | disposition home or self-care (01) ==
LOC: RADCTMAIN 11:15
PROVIDERS: ATTEND Family Medicine
DX: Z12.2 Encounter for screening for malignant neoplasm of respiratory organs (principal); F17.210 Nicotine dependence, cigarettes, uncomplicated
CPT/HCPCS: 71271

== ENCOUNTER 2023-06-16 17:55 | Emergency (ER) | payer OTHER ==
--- NOTE | 2023-06-16 18:05 | ED ---
General Adult HPI - General Source: RN notes reviewed <Sanjana Fletcher - Last Filed: 06/16/23 18:04> <Jo Ann Buck - Last Filed: 06/16/23 22:50> - General Stated complaint: bilat ear pain Time Seen by Provider: 06/16/23 18:04 - History of Present Illness Initial comments: 53-year-old female with no significant past medical history presents the emergency department with a chief complaint of bilateral ear pain. Patient is on third round of antibiotics. She reports no symptomatical relief. (Sanjana Fletcher) Patient is a 53-year-old female who presents the emergency department pain in both of her ears. Started 2.5 weeks ago. Patient was prescribed amoxicillin by urgent care she took it for 5 days without relief. She was then given Augmentin by her primary care provider she took it for another 5 days with no relief. Patient then placed on Cefdinir for 3 days she presents today due to no improvement. She has not taken any pain medication. She denies other upper respiratory symptoms including throat pain, fever. (Jo Ann Buck) - Related Data Home Medications Medication Instructions Recorded Confirmed Azelastine HCl [Astepro] 1 spr EA NOSTRIL BID PRN 01/03/21 01/03/21 Cetirizine HCl 10 mg PO HS 01/03/21 01/03/21 EPINEPHrine (Auto Inject) [Epipen] 0.3 mg IM ONCE PRN 01/03/21 01/03/21 Fluticasone Nasal [place] [Flonase 2 spr EA NOSTRIL BID PRN 01/03/21 01/03/21 Nasal [place]] Levothyroxine Sodium 150 mcg PO DAILY 01/03/21 01/03/21 Montelukast [Singulair] 10 mg PO HS 01/03/21 01/03/21 Previous Rx's Medication Instructions Recorded EPINEPHrine (Auto Inject) [Epipen] 0.3 mg IM ONCE PRN #1 pen 04/18/21 predniSONE 50 mg PO DAILY #5 tab 04/18/21 Albuterol Inhaler [Ventolin Hfa 1 - 2 puff INHALATION Q6H PRN #1 04/12/23 Inhaler] each predniSONE 50 mg PO DAILY #5 tab 04/12/23 Ibuprofen [Motrin] 600 mg PO Q6HR PRN #30 tab 06/16/23 Allergies Allergy/AdvReac Type Severity Reaction Status Date / Time Beef Containing Products Allergy Rash/Hives Verified 06/16/23 18:03 [Beef] insect venom Allergy Anaphylaxis Verified 06/16/23 18:03 Milk Containing Products Allergy Rash/Hives Verified 06/16/23 18:03 [Dairy] Penicillins Allergy Rash/Hives Verified 06/16/23 18:03 Review of Systems ROS Other: All systems not noted in ROS Statement are negative. <Sanjana Fletcher - Last Filed: 06/16/23 18:04> ROS Other: All systems not noted in ROS Statement are negative. <Jo Ann Buck - Last Filed: 06/16/23 22:50> ROS Statement: Those systems with pertinent positive or pertinent negative responses have been documented in the HPI. Past Medical History Past Medical History: Hyperlipidemia, Thyroid Disorder History of Any Multi-Drug Resistant Organisms: None Reported Past Surgical History: Cholecystectomy, Hysterectomy, Orthopedic Surgery, Tonsillectomy Past Psychological History: No Psychological Hx Reported Smoking Status: Current every day smoker Past Alcohol Use History: Occasional Past Drug Use History: Marijuana <JustineSanjana - Last Filed: 06/16/23 18:04> General Exam <JustineSanjana - Last Filed: 06/16/23 18:04> Head exam: Present: other (No mastoid tenderness) Eye exam: Present: normal appearance, PERRL, EOMI. Absent: scleral icterus, conjunctival injection, periorbital swelling ENT exam: Present: normal oropharynx. Absent: TM's normal bilaterally (Tympanic membranes erythematous the 12 o'clock position bilaterally no bulging or effusion. Scarring right TM) Neck exam: Present: normal inspection, full ROM. Absent: lymphadenopathy Respiratory exam: Present: normal lung sounds bilaterally. Absent: respiratory distress, wheezes, rales, rhonchi, stridor Cardiovascular Exam: Present: regular rate, normal rhythm, normal heart sounds. Absent: systolic murmur, diastolic murmur, rubs, gallop, clicks Neurological exam: Present: alert Psychiatric exam: Present: normal affect, normal mood Skin exam: Present: warm, dry, intact, normal color. Absent: rash <Jo Ann Buck - Last Filed: 06/16/23 22:50> - General Exam Comments Initial Comments: Visual Physical Exam Vital signs reviewed General: Well-appearing, nontoxic, no acute distress. Head: Normocephalic, atraumatic Eyes: PERRLA, EOMI ENT: Airway patent Chest: Nonlabored breathing Skin: No visual rash, normal skin tone Neuro: Alert and oriented 3 Musculoskeletal: No gross abnormalities I performed the quick note portion of this exam, verbal signature Sanjana Fletcher PA-C (Sanjana Fletcher) Course Vital Signs 06/16/23 06/16/23 18:03 21:05 Temperature 97.8 F 97.9 F Pulse Rate 82 80 Respiratory 16 18 Rate Blood Pressure 129/73 139/78 O2 Sat by Pulse 97 99 Oximetry Medical Decision Making <CieloYuryJo Ann - Last Filed: 06/16/23 22:50> - Medical Decision Making Was pt. sent in by a medical professional or institution ([facility], [employer], urgent care, hospital, or detention...) When possible be specific @ -No Did you speak to anyone other than the patient for history (EMS, parent, family, police, friend...)? What history was obtained from this source @ -No Did you review nursing and triage notes (agree or disagree)? Why? @ -I reviewed and agree with nursing and triage notes Were old charts reviewed (outside hosp., previous admission, EMS record, old EKG, old radiological studies, urgent care reports/EKG's, detention records)? Report findings @ -No old charts were reviewed Differential Diagnosis (chest pain, altered mental status, abdominal pain women, abdominal pain men, vaginal bleeding, weakness, fever, dyspnea, syncope, headache, dizziness, GI bleed, back pain, seizure, CVA, palpatations, mental health)? @ -acute otitis media, acute otitis externa, URI. This list is not meant to be all-inclusive EKG interpreted by me (3pts min.). @ -As above X-rays interpreted by me (1pt min.). @ -None done CT interpreted by me (1pt min.). @ -None done U/S interpreted by me (1pt. min.). @ -None done What testing was considered but not performed or refused? (CT, X-rays, U/S, labs)? Why? @ -None What meds were considered but not given or refused? Why? @ -None Did you discuss the management of the patient with other professionals (prof branham i.e. , PA, [employer], lab, RT, psych nurse, medical social consultant, field pipelines supervisor, teacher, guest services officer, case resolution specialist)? Give summary @ -No Was smoking cessation discussed for >3mins.? @ -[No] Was critical care preformed (if so, how long)? @ -[No] Were there social determinants of health that impacted care today? How? (Homelessness, low income, unemployed, alcoholism, drug addiction, transportation, low edu. Level, literacy, decrease access to med. care, long-term, rehab)? @ -[No] Was there de-escalation of care discussed even if they declined (Discuss DNR or withdrawal of care, Hospice)? DNR status @ -[No] What co-morbidities impacted this encounter? (DM, HTN, Smoking, COPD, CAD, Cancer, CVA, ARF, Chemo, Hep., AIDS, mental health diagnosis, sleep apnea, morbid obesity)? @ -[None] Was patient admitted / discharged? Hospital course, mention meds given and route, prescriptions, significant lab abnormalities, going to OR and other pertinent info. @ -Patient presented with bilateral ear pain. The bilateral tympanic membranes are erythematous of the 12 o'clock position, no bulging, no effusion. No systemic symptoms or signs. Pain improved during visit patient will continue Cefdinir and is referred to ENT specialist for further evaluation and management. Undiagnosed new problem with uncertain prognosis? @ -[No] Drug Therapy requiring intensive monitoring for toxicity (Heparin, Nitro, Insulin, Cardizem)? @ -[No] Were any procedures done? @ -[No] Diagnosis/symptom? @ -bilateral ear pain Acute, or Chronic, or Acute on Chronic? @ -acute Uncomplicated (without systemic symptoms) or Complicated (systemic symptoms)? @ -uncomplicated Side effects of treatment? @ -[No] Exacerbation, Progression, or Severe Exacerbation? @ -[No] Poses a threat to life or bodily function? How? (Chest pain, [place], [place], pneumonia, PE, COPD, DKA, ARF, appy, cholecystitis, CVA, Diverticulitis, Homicidal, Suicidal, threat to staff... and all critical care pts) @ -No Dr. Law is my attending (Jo Ann Buck) Disposition <Sanjana Fletcher - Last Filed: 06/16/23 18:04> Is patient prescribed a controlled substance at d/c from ED?: No <Jo Ann Buck - Last Filed: 06/16/23 22:50> Clinical Impression: Acute pain of both ears Disposition: HOME SELF-CARE Condition: Good Instructions (If sedation given, give patient instructions): Earache (ED) Additional Instructions: Continue Cefdinir. Take medication as needed for pain. Follow-up with ENT specialist in 1-2 days. Return to the emergency department if you experience new, concerning, or worsening symptoms. Prescriptions: Ibuprofen [Motrin] 600 mg PO Q6HR PRN #30 tab PRN Reason: Pain Referrals: Carrillo Carrero MD [Primary Care Provider] - 1-2 days Chuckie Talley DO [Doctor of Osteopathic Medicine] - 1-2 days
[2023-06-16] MEDS ORDERED: KETOROLAC 15 MG/ML 1 ML VIAL IM STA (19:16)
[2023-06-17 15:46] VITALS: BP 139/78; PULSE 80; RESP 18; TEMP 97.9
== END 2023-06-16 21:10 | disposition home or self-care (01) ==
LOC: EC 17:55
DX: H92.03 Otalgia, bilateral (principal); E07.9 Disorder of thyroid, unspecified; F17.200 Nicotine dependence, unspecified, uncomplicated; F12.90 Cannabis use, unspecified, uncomplicated; Z79.890 Hormone replacement therapy; Z88.0 Allergy status to penicillin; Z91.011 Allergy to milk products; Z91.018 Allergy to other foods; Z91.030 Bee allergy status
CPT/HCPCS: 99283; 96372; J1885

== ENCOUNTER → 2023-12-21 | Outpatient (CLI) | payer OTHER | LOC: CPPFTMAIN 16:56 | PROVIDERS: ATTEND Family Medicine | DX: J44.9 Chronic obstructive pulmonary disease, unspecified (principal); F17.200 Nicotine dependence, unspecified, uncomplicated; Z91.014 Allergy to mammalian meats; Z91.011 Allergy to milk products; Z91.038 Other insect allergy status; Z88.0 Allergy status to penicillin; Z79.899 Other long term (current) drug therapy; Z79.51 Long term (current) use of inhaled steroids | CPT/HCPCS: 94060; 94726; 94729 ==

== ENCOUNTER 2024-01-10 10:34 | Day surgery (SDC) | payer OTHER ==
[2024-01-05 10:36] VITALS: BMI 28.3
[~2024-01-10 10:34] MED LIST: HYDROmorphone 0.5 MG/0.5 ML SYRINGE IVP PRN; LACTATED RINGERS 1,000 ML IV SCH; MIDAZOLAM 2 MG/2 ML VIAL IV PRN; Pre Op ABX Message 1 EACH MISC MISCELLANE ONE
[2024-01-10] MEDS: LACTATED RINGERS 1,000 ML IV ONE (11:04)
[2024-01-10] MEDS: DEXAMETHASONE SOD PHOSPHATE 4 MG/ML 1 ML VIAL IVP ONE (11:10)
[2024-01-10] MEDS: ONDANSETRON 4 MG/2 ML VIAL ONE (11:10)
[2024-01-10 11:37] VITALS: TEMP 98
[2024-01-10] MEDS ORDERED: KETOROLAC 15 MG/ML 1 ML VIAL ONE (12:16)
[2024-01-10] MEDS ORDERED: MIDAZOLAM 2 MG/2 ML VIAL ONE (12:16)
[2024-01-10] MEDS ORDERED: fentaNYL (PF) 50 MCG/ML 2 ML AMP ONE (12:16)
[2024-01-10] MEDS ORDERED: PROPOFOL 10 MG/ML 20 ML VIAL IV ONE (12:16)
[2024-01-10] MEDS: LIDOCAINE 2% (PF) 20 MG/ML 10 ML AMP SQ ONE (12:32)
--- NOTE | 2024-01-10 12:44 | P.OP ---
Date of Procedure: 01/10/24 Procedure(s) Performed: PREOPERATIVE DIAGNOSES: 1. Right wrist carpal tunnel syndrome POSTOPERATIVE DIAGNOSES: 1. Right wrist carpal tunnel syndrome PROCEDURES PERFORMED: 1. Right wrist carpal tunnel release ANESTHESIA: Local with IV sedation HARDBOARD SUPERVISOR: None COMPLICATIONS: None ESTIMATED BLOOD LOSS: Less than 1 mL DISPOSITION: To post-anesthesia care unit INDICATIONS: Kiersten is a 53-year-old female who has had EMG/nerve conduction study confirmed carpal tunnel syndrome with unrelenting symptoms. She desires to have a carpal tunnel release as discussed in office. I discussed the steps of the surgery as well as potential risks and complications as being inclusive of, but not limited to: Bleeding, infection, scarring, discomfort, blood vessel and/or nerve damage, need for further surgery, stiffness, tendon injury, persistence or recurrence of symptoms and other risks. The patient is aware of these risks and wishes to proceed with surgery. The consent form has been signed. PROCEDURE: After appropriate consent was obtained, the patient was taken to the operating room placed in the supine position. Anesthesia was initiated, and after confirmation of adequate anesthesia, the patient was carefully positioned. Care was taken to make sure that all pressure points were adequately padded. Timeout was called, confirming patient identity, side, procedure, and no antibiotics were administered. Limb was exsanguinated with an Esmarch bandage and the tourniquet was inflated to 250 mmHg. Total tourniquet time for the case was approximately 9 minutes. Incision was created in line with the radial border of the fourth ray at the base of the palm. Incision was carried down through skin and then lightly spread down to palmar fascia. Retractors were placed. Excellent visualization of the palmar fascia was accomplished and the palmar fascia was incised to reveal the underlying transverse carpal ligament. The ligament was incised sharply using a knife and released in 1 mm increments both proximally and distally to the extent of the wound. Further fascial releases were performed in both directions using gentle push technique with curved small Metzenbaum scissors. Full release was confirmed with visual inspection and instrument palpation. The underlying structures of the carpal tunnel were noted to be fairly normal without evidence of significant tenosynovitis. Thorough irrigation was performed using normal saline. Tourniquet was deflated and combination of bipolar electrocautery and pressure was used for hemostasis. Closure was performed using vertical mattress 4-0 nylon suture. Sterile dressing was applied and further pressure was held over the wound for 3 minutes for additional hemostasis. Vascular status remained good with less than 2 second capillary refill. Patient tolerated the procedure well and taken to recovery room in stable condition. Counts were correct.
[2024-01-10 13:02] VITALS: RESP 16
[2024-01-10 13:43] VITALS: BP 135/90; PULSE 58
== END 2024-01-10 14:08 | disposition home or self-care (01) ==
LOC: OR 10:34
PROVIDERS: ATTEND Orthopaedic Surgery
DX: G56.01 Carpal tunnel syndrome, right upper limb (principal); E78.5 Hyperlipidemia, unspecified; E03.9 Hypothyroidism, unspecified; J45.909 Unspecified asthma, uncomplicated; F17.290 Nicotine dependence, other tobacco product, uncomplicated; K21.9 Gastro-esophageal reflux disease without esophagitis; F10.90 Alcohol use, unspecified, uncomplicated; Z88.0 Allergy status to penicillin; Z88.2 Allergy status to sulfonamides; Z90.710 Acquired absence of both cervix and uterus; Z90.49 Acquired absence of other specified parts of digestive tract; Z98.51 Tubal ligation status; Z98.890 Other specified postprocedural states; Z82.49 Family history of ischemic heart disease and other diseases of the circulatory system; Z83.3 Family history of diabetes mellitus; Z79.890 Hormone replacement therapy; Z79.51 Long term (current) use of inhaled steroids; Z79.899 Other long term (current) drug therapy
CPT/HCPCS: 64721; J2250; J1100; J2001; J2405; J3010; J1885; J2704

== ENCOUNTER 2024-05-30 20:04 | Emergency (ER) | payer OTHER ==
[2024-05-30 20:17] VITALS: TEMP 98
--- NOTE | 2024-05-30 20:19 | ED ---
Animal Bite HPI - General Source: patient, RN notes reviewed Mode of arrival: ambulatory Limitations: no limitations - History of Present Illness MD Complaint: animal bite <Lucille Ambrosio - Last Filed: 05/30/24 20:16> <Ty Price - Last Filed: 05/30/24 23:29> - General Chief Complaint: Animal Bite Stated Complaint: Dog Bite-L thigh Time Seen by Provider: 05/30/24 20:14 - History of Present Illness Initial Comments: Quick Note: This is a 54-year-old female who presents to the emergency department for dog bite. 3 days ago her friend's dog bit her in the left thigh. States that this was minor and initially did not even have any bleeding, so she did not think much of it. Reports dog is up-to-date on vaccines. Yesterday the wound started draining what appeared to be purulent material. She went to urgent care today and was advised that if it did not get any better she should go to the emergency department. Denies any fevers or chills. (Lucille Ambrosio) 54-year-old female presenting chief complaint of dog bite. 3 days ago she was p laying with her friends dog and was bitten on the left thigh. This was initially quite minor and patient just had some minor redness. She has since started to have some clear redness and yellow discharge from the wound. She was seen at urgent care earlier today and placed on metronidazole and doxycycline due to multiple drug allergies. No fevers or chills. She states that she had more discharged this evening so she came in for further evaluation. No fevers. She reports that this dog is up-to-date on vaccinations. (Ty Price) - Related Data Home Medications Medication Instructions Recorded Confirmed Montelukast [Singulair] 10 mg PO HS 01/03/21 01/10/24 Famotidine [Pepcid] 20 mg PO DAILY 01/05/24 01/10/24 Ibuprofen [Advil] 200 mg PO Q8HR PRN 01/05/24 01/05/24 Levothyroxine Sodium [Synthroid] 137 mcg PO DAILY 01/05/24 01/05/24 Loratadine [Claritin] 10 mg PO DAILY 01/05/24 01/10/24 Previous Rx's Medication Instructions Recorded Albuterol Inhaler [Ventolin Hfa 1 - 2 puff INHALATION Q6H PRN #1 04/12/23 Inhaler] each Allergies Allergy/AdvReac Type Severity Reaction Status Date / Time Beef Containing Products Allergy Rash/Hives Verified 05/30/24 20:18 [Beef] insect venom Allergy Anaphylaxis Verified 05/30/24 20:18 Milk Containing Products Allergy Rash/Hives Verified 05/30/24 20:18 (Dairy) [Dairy] Penicillins Allergy Rash/Hives Verified 05/30/24 20:18 sulfamethoxazole Allergy Rash/Hives Verified 05/30/24 20:19 [From Bactrim] trimethoprim [From Bactrim] Allergy Rash/Hives Verified 05/30/24 20:19 adhesive tape AdvReac RASH, Verified 05/30/24 20:18 SWELLING, ITCHING cephalexin [From Keflex] AdvReac Nausea & Verified 05/30/24 20:19 Vomiting & Diarrhea Review of Systems ROS Other: All systems not noted in ROS Statement are negative. <Lucille Ambrosio - Last Filed: 05/30/24 20:16> ROS Other: All systems not noted in ROS Statement are negative. <Ty Price - Last Filed: 05/30/24 23:29> ROS Statement: Those systems with pertinent positive or pertinent negative responses have been documented in the HPI. Past Medical History Past Medical History: Hyperlipidemia, Thyroid Disorder Additional Past Medical History / Comment(s): SEASONAL AND ENVIRONMENTAL ALLERGIES. ALLERGY INDUCED ASTHMA History of Any Multi-Drug Resistant Organisms: None Reported Past Surgical History: Cholecystectomy, Hysterectomy, Orthopedic Surgery, Tonsillectomy Additional Past Surgical History / Comment(s): RT KNEE SX Past Anesthesia/Blood Transfusion Reactions: No Reported Reaction Smoking Status: Current every day smoker - Past Family History Mother Family Medical History: Cancer <Lucille Ambrosio - Last Filed: 05/30/24 20:16> General Exam <Lucille Ambrosio - Last Filed: 05/30/24 20:16> Limitations: no limitations General appearance: alert, in no apparent distress Head exam: Present: atraumatic, normocephalic Eye exam: Present: normal appearance, EOMI Neck exam: Present: normal inspection. Absent: meningismus Respiratory exam: Absent: respiratory distress Cardiovascular Exam: Present: regular rate Neurological exam: Present: alert, oriented X3 Psychiatric exam: Present: normal affect, normal mood Skin exam: Present: erythema (She has some mild erythema to the left thigh near the site of the plate, this is limited to immediately surrounding the injury) <Ty Price - Last Filed: 05/30/24 23:29> - General Exam Comments Initial Comments: Visual Physical Exam Vital signs reviewed General: Well-appearing, nontoxic, no acute distress. Head: Normocephalic, atraumatic Eyes: PERRLA, EOMI ENT: Airway patent Chest: Nonlabored breathing Skin: No visual rash, normal skin tone Neuro: Alert and oriented 3 Musculoskeletal: No gross abnormalities (Lucille Ambrosio) Course Vital Signs 05/30/24 05/30/24 20:10 22:14 Temperature 98.0 F Pulse Rate 78 69 Respiratory 18 16 Rate Blood Pressure 136/84 117/72 O2 Sat by Pulse 97 98 Oximetry Medical Decision Making <Lucille Ambrosio - Last Filed: 05/30/24 20:16> - Lab Data Result diagrams: 05/30/24 20:42 05/30/24 20:42 <Ty Price - Last Filed: 05/30/24 23:29> - Medical Decision Making I performed the QuickNote portion of this chart. Signed Lucille Ambrosio PA-C. (Lucille Ambrosio) Was pt. sent in by a medical professional or institution ([facility], [employer]INATING MACHINE FEEDER, urgent care, hospital, or [facility]...) When possible be specific @ -No Did you speak to anyone other than the patient for history (EMS, parent, family, police, friend...)? What history was obtained from this source @ -No Did you review nursing and triage notes (agree or disagree)? Why? @ -I reviewed and agree with nursing and triage notes Were old charts reviewed (outside hosp., previous admission, EMS record, old EKG, old radiological studies, urgent care reports/EKG's, [facility] records)? Report findings @ -No old charts were reviewed Differential Diagnosis (chest pain, altered mental status, abdominal pain women, abdominal pain men, vaginal bleeding, weakness, fever, dyspnea, syncope, headache, dizziness, GI bleed, back pain, seizure, CVA, palpatations, mental health, musculoskeletal)? @ -Differential includes cellulitis, serosanguineous fluid, allergic reaction, this is not an all-inclusive list EKG interpreted by me (3pts min.). @ -As above X-rays interpreted by me (1pt min.). @ -None done CT interpreted by me (1pt min.). @ -None done U/S interpreted by me (1pt. min.). @ -None done What testing was considered but not performed or refused? (CT, X-rays, U/S, labs)? Why? @ -None What meds were considered but not given or refused? Why? @ -None Did you discuss the management of the patient with other professionals (professionals i.e. , PA, [employer] LAMINATING MACHINE FEEDER, lab, RT, psych nurse, social media marketing manager, tobacco prevention health educator, teacher, safety and security officer, case consultant)? Give summary @ -No Was smoking cessation discussed for >3mins.? @ -No Was critical care preformed (if so, how long)? @ -No Were there social determinants of health that impacted care today? How? (Homelessness, low income, unemployed, alcoholism, drug addiction, transportation, low edu. Level, literacy, decrease access to med. care, [facility], rehab)? @ -No Was there de-escalation of care discussed even if they declined (Discuss DNR or withdrawal of care, Hospice)? DNR status @ -No What co-morbidities impacted this encounter? (DM, HTN, Smoking, COPD, CAD, Cancer, CVA, ARF, Chemo, Hep., AIDS, mental health diagnosis, sleep apnea, morbid obesity)? @ -None Was patient admitted / discharged? Hospital course, mention meds given and route, prescriptions, significant lab abnormalities, going to OR and other pertinent info. @ -54-year-old female presenting chief complaint of dog bite. Was bitten 3 days ago and today went to urgent care was started on metronidazole and doxycycline. He is concerned because she seemed to have more discharge this evening. On exam there is some very mild erythema to the left leg immediately surrounding the injury. No purulent fluid. It does appear to be some serosanguineous fluid on the bandage. WBC mildly elevated at 10.9. Patient is instructed to continue with her antibiotics prescribed by urgent care educated on wound care and signs of worsening infection that should prompt reevaluation. Discharged home. Follow-up with PCP. Report back to ER with any new or worsening symptoms. Discussed return parameters and answered all questions. Patient conveyed verbal understanding and agreed to the plan. I discussed this case in detail with my attending Dr. Law Undiagnosed new problem with uncertain prognosis? @ -No Drug Therapy requiring intensive monitoring for toxicity (Heparin, Nitro, Insulin, Cardizem)? @ -No Were any procedures done? @ -No Diagnosis/symptom? @ -dog bite Acute, or Chronic, or Acute on Chronic? @ -Acute Uncomplicated (without systemic symptoms) or Complicated (systemic symptoms)? @ -Uncomplicated Side effects of treatment? @ -No Exacerbation, Progression, or Severe Exacerbation? @ -No Poses a threat to life or bodily function? How? (Chest pain, [place], [place], pneumonia, PE, COPD, DKA, ARF, appy, cholecystitis, CVA, Diverticulitis, Homicidal, Suicidal, threat to staff... and all critical care pts) @ -Unlikely at this time (Ty Price) - Lab Data Lab Results 05/30/24 05/30/24 05/30/24 Range/Units 20:42 20:42 20:42 WBC 10.9 H (3.8-10.6) k/uL RBC 4.37 (3.80-5.40) m/uL Hgb 13.9 (11.4-16.0) gm/dL Hct 41.0 (34.0-46.0) % MCV 93.9 (80.0-100.0) fL MCH 31.7 (25.0-35.0) pg MCHC 33.7 (31.0-37.0) g/dL RDW 12.8 (11.5-15.5) % Plt Count 294 (150-450) k/uL MPV 8.7 Neutrophils % 56 % Lymphocytes % 33 % Monocytes % 5 % Eosinophils % 3 % Basophils % 1 % Neutrophils # 6.2 (1.3-7.7) k/uL Lymphocytes # 3.6 (1.0-4.8) k/uL Monocytes # 0.6 (0-1.0) k/uL Eosinophils # 0.3 (0-0.7) k/uL Basophils # 0.1 (0-0.2) k/uL Sodium 141 (137-145) mmol/L Potassium 3.6 (3.5-5.1) mmol/L Chloride 110 H (98-107) mmol/L Carbon Dioxide 21 L (22-30) mmol/L Anion Gap 10 mmol/L BUN 24 H (7-17) mg/dL Creatinine 0.92 (0.52-1.04) mg/dL Est GFR (CKD-EPI)AfAm 82 (>60 ml/min/1.73 sqM) Est GFR (CKD-EPI)NonAf 71 (>60 ml/min/1.73 sqM) Glucose 113 H (74-99) mg/dL Plasma Lactic Acid Shukri 1.8 (0.7-2.0) mmol/L Calcium 9.7 (8.4-10.2) mg/dL Total Bilirubin 0.7 (0.2-1.3) mg/dL AST 28 (14-36) U/L ALT 23 (4-34) U/L Alkaline Phosphatase 60 (38-126) U/L C-Reactive Protein <0.5 (<1.0) mg/dL Total Protein 7.1 (6.3-8.2) g/dL Albumin 4.5 (3.5-5.0) g/dL Disposition <Lucille Ambrosio - Last Filed: 05/30/24 20:16> Is patient prescribed a controlled substance at d/c from ED?: No Time of Disposition: 21:56 <Ty Price - Last Filed: 05/30/24 23:29> Clinical Impression: Dog bite Disposition: HOME SELF-CARE Condition: Good Instructions (If sedation given, give patient instructions): Animal Bite (ED) Additional Instructions: Continue taking your antibiotics as prescribed. Keep the area clean with soap and water. Follow-up with your PCP. Report back to ER with any new or wor sening symptoms. Referrals: Carrillo Carrero MD [Primary Care Provider] - 1-2 days
[2024-05-30 20:51] LABS: Basophils # (A) 0.1 k/uL (0-0.2); Basophils % (A) 1 %; Eosinophils # (A) 0.3 k/uL (0-0.7); Eosinophils % (A) 3 %; HGB 13.9 gm/dL (11.4-16.0); Lymphocytes # (A) 3.6 k/uL (1.0-4.8); Lymphocytes % (A) 33 %; MCH 31.7 pg (25.0-35.0); MCHC 33.7 g/dL (31.0-37.0); MCV 93.9 fL (80.0-100.0); Mean Platelet Volume 8.7; Monocytes # (A) 0.6 k/uL (0-1.0); Monocytes % (A) 5 %; Neutrophils # (A) 6.2 k/uL (1.3-7.7); Neutrophils % (A) 56 %; Platelet Count 294 k/uL (150-450); RBC 4.37 m/uL (3.80-5.40); RDW 12.8 % (11.5-15.5); WBC 10.9 k/uL (3.8-10.6)
[2024-05-30 21:16] LABS: ALT 23 U/L (4-34); AST 28 U/L (14-36); African American GFR (CKD) 82 (>60 ml/min/1.73 sqM); Albumin 4.5 g/dL (3.5-5.0); Alkaline Phosphatase 60 U/L (38-126); Anion Gap 10 mmol/L; Blood Urea Nitrogen 24 mg/dL (7-17); C Reactive Protein <0.5 mg/dL (<1.0); Calcium 9.7 mg/dL (8.4-10.2); Carbon Dioxide 21 mmol/L (22-30); Chloride 110 mmol/L (98-107); Glucose 113 mg/dL (74-99); Non-African American GFR(CKD) 71 (>60 ml/min/1.73 sqM); Potassium 3.6 mmol/L (3.5-5.1); Sodium 141 mmol/L (137-145); Total Bilirubin 0.7 mg/dL (0.2-1.3); Total Protein 7.1 g/dL (6.3-8.2)
[2024-05-30 22:16] VITALS: BP 117/72; PULSE 69; RESP 16
[2024-05-31 03:30] LABS: Erythrocyte Sedimentation Rate 10 mm/Hr (0-30)
== END 2024-05-30 22:15 | disposition home or self-care (01) ==
LOC: EC 20:04
DX: W54.0XXA Bitten by dog, initial encounter
CPT/HCPCS: 36415; 80053; 83605; 85025; 85652; 86140; 99283

== ENCOUNTER → 2024-08-07 | Outpatient (CLI) | payer OTHER ==
--- NOTE | 2024-08-13 18:41 | MM ---
Reason for Exam: Screening (asymptomatic). Last mammogram was performed 1 year(s) and 3 month(s) ago. Patient History: Menarche at age 10. First Full-Term at age 23. Hysterectomy at age 44. Postmenopausal. Maternal aunt had breast cancer. Risk Values: Yolanda 5 year model risk: 1.1%. NCI Lifetime model risk: 8.2%. Prior Study Comparison: 10/20/2019 Left Diagnostic Mammogram, [facility]. 09/12/2021 Bilateral Screening Mammogram, [facility]. 05/21/2023 Bilateral MG screening mammo w CAD, [facility]. Tissue Density: There are scattered areas of fibroglandular density. Findings: Analyzed By CAD. The pattern is symmetrical. Exam appears stable. No suspicious groups of microcalcifications, spiculated or lobular masses, architectural distortion or other secondary signs of malignancy are mammographically apparent. Overall Assessment: Benign, BI-RAD 2 Management: Screening Mammogram of both breasts in 1 year. A negative mammogram report should not preclude additional follow up of suspicious palpable abnormalities. Patient should continue monthly self breast exam. A clinical breast exam by your physician is recommended on an annual basis and results should be correlated with mammographic findings. Note on Yolanda scores and lifetime risk: 1. A Yolanda score greater than 3% is considered moderate risk. If this is the case, consider specialist referral to assess eligibility for a risk reducing agent. 2. If overall lifetime risk for the development of breast cancer is 20% or higher, the patient may qualify for future screening with alternating mammogram and breast MRI. [facility], , 08/13/2024 6:38 PM. Electronically signed and approved by: Rodolfo Glasgow D.O. Radiologis
== END | disposition home or self-care (01) ==
LOC: RADMAMWWP 16:45
PROVIDERS: ATTEND Family Medicine
DX: Z12.31 Encounter for screening mammogram for malignant neoplasm of breast (principal); Z78.0 Asymptomatic menopausal state; Z80.3 Family history of malignant neoplasm of breast; R92.323 Mammographic fibroglandular density, bilateral breasts
CPT/HCPCS: 77063; 77067